=== PATIENT | female | born 1990 | race Caucasian/White ===

== ENCOUNTER 2017-12-31 16:20 | Outpatient (CLI) | payer BC | END 2017-12-31 16:21 | disposition home or self-care (01) | LOC: LAB 16:20 | PROVIDERS: ATTEND Nurse Practitioner | DX: R19.8 Other specified symptoms and signs involving the digestive system and abdomen (principal) | CPT/HCPCS: 36415; 83516 ==

== ENCOUNTER 2019-01-09 08:00 | Outpatient (CLI) | payer BC | END 2019-01-09 23:59 | disposition home or self-care (01) | LOC: LAB.R 08:00 | PROVIDERS: ATTEND Registered Nurse | DX: N76.0 Acute vaginitis (principal) | CPT/HCPCS: 87070; 87102; 87206 ==

== ENCOUNTER 2022-08-16 10:14 | Outpatient (CLI) | payer BC ==
--- NOTE | 2022-08-16 20:16 | XRAY Report ---
PROCEDURE: Elbow 3 View LT INDICATIONS: ELBOW PX TECHNIQUE: 3 views of the elbow were acquired. COMPARISON: None FINDINGS: Bones: No fractures or dislocations. No suspicious bony lesions. Soft tissues: No elbow joint effusion. No suspicious soft tissue calcifications. IMPRESSION: No visualized acute fracture or dislocation. However, occult injury cannot be excluded. Recommend rod rt interval imaging follow-up in 7-10 days as clinically indicated for additional evaluation. Reviewed by: Cally Almonte MD on 08/16/2022 8:15 PM PST Approved by: Cally Almonte MD on 08/16/2022 8:15 PM PST Station ID: [id number]
== END 2022-08-16 10:15 | disposition home or self-care (01) ==
LOC: DI 10:14
PROVIDERS: ATTEND Registered Nurse
DX: M25.522 Pain in left elbow (principal)